=== PATIENT | female | born 1975 | race Caucasian/White ===

== ENCOUNTER 2021-05-14 14:54 | Emergency (ER) | payer BC, SELFPAY ==
[2021-05-14 14:58] VITALS: BP 104/86; PULSE 90; RESP 16; TEMP 35.9; O2SAT 97; BMI 32.9
[2021-05-14 15:55] LABS: Absolute Lymphocyte Count 2.19 X10^3/uL (0.83-4.51); Absolute Neutrophil Count 5.1 X10^3/uL (2.0-7.7); Basophil# 0.05 X10^3/uL; Basophil% 0.6 % (0-1); Eosinophil# 0.18 X10^3/uL; Eosinophils% 2.2 % (0-5); Hematocrit 39.3 % (37-47); Hemoglobin 12.7 g/dL (12.0-15.0); Lymphocyte # 2.19 X10^3/ul (0.83-4.51); Lymphocyte % 27.2 % (19-41); Mean Corp Hgb Conc 32.3 g/dL (32-36); Mean Corpuscular Hgb 30.6 pg (27.0-32.0); Mean Corpuscular Volume 94.7 fL (81-99); Mean Platelet Vol. 9.7 fl (6.2-12.0); Monocyte% 6.2 % (0-10); NRBC Flagged by Analyzer 0 % (0-5); Neutrophil # 5.11 X10^3/uL (2.7-7.7); Neutrophil % 63.4 % (47-70); Platelet Count 366 K/mm3 (150-450); RBC Distribution Width CV 13.1 % (11.6-14.6); RBC Distribution Width SD 45.1 fl (35.1-43.9); Red Blood Count 4.15 M/mm3 (4.2-5.4); White Blood Count 8.1 K/mm3 (4.4-11.0)
[2021-05-14 16:03] LABS: Internal QC Validated? YES +Cl - CLEAR BKGD; Pregnancy, Serum, hCG Quali. NEGATIVE Negative
[2021-05-14 16:51] LABS: Anion Gap 6 (5-15); BUN 7 mg/dL (7-18); BUN/Creat Ratio 9.8 RATIO (10-20); Calcium,Total 8.9 mg/dL (8.5-10.1); Chloride 105 mmol/L (98-107); Creatinine, Serum 0.71 mg/dL (0.55-1.02); EST Glomerular Filtration Rate 95 mL/min (>60); Est Glom Filt Rate - Afr Amer 115 mL/min (>60); Estimated Creatinine Clearance 91.93 ml/min; Glucose 77 mg/dL (74-106); Sodium Level 138 mmol/L (136-145)
--- NOTE | 2021-05-14 16:53 | CT_ITS ---
STUDY: CT ABDOMEN AND PELVIS WITH CONTRAST REASON FOR EXAM: Female, 45 years old. LLQ pain RADIATION DOSAGE (If Supplied By Facility): CTDIvol = ( 16.88 ) mGy, DLP = ( 1070.63 ) mGycm TECHNIQUE: Transaxial images were obtained from the dome of the diaphragm to the symphysis pubis without oral contrast. IV 100mL Isovue-370 was administered. Sagittal and coronal images were reconstructed. Individualized dose optimization techniques were used for this CT. COMPARISON: None. FINDINGS: The visualized lung bases are unremarkable. The visualized portions of the heart are within normal limits. There are bilateral breast implants. Normal liver. Normal gallbladder and extrahepatic biliary system. Normal spleen. Normal pancreas. Normal bilateral adrenal glands. Normal right kidney. Normal left kidney. Normal visualized stomach. Normal small intestine. Normal colon. The appendix is visualized and appears normal. Normal abdominal aorta. Normal inferior vena cava. Normal retroperitoneum. Normal urinary bladder. There is absence of the uterus consistent with a prior hysterectomy. There is no free fluid in the abdomen or pelvis. Normal abdominal wall. There is right hip replacement. CT/Abdomen/Pelvis W IV Cont ONLY IMPRESSION: No mass or obstruction. No stones or hydronephrosis. Electronically Signed: Adam Jordan MD at 17:27 EDT , Service support ,
--- NOTE | 2021-05-14 16:54 | ED.VIS.GI ---
HPI HPI - GI History of Present Illness Chief Complaint: GI Bleed Informant: patient Abdominal Pain/Flank Pain Onset: Today Context: Gradual Onset Timing: Continuous Quality: Aching Location: LLQ (With radiation into both sides of low back and right lower quadrant) Current Severity: Moderate Maximum Severity: Moderate Worsened by: Car ride Relieved by: Nothing Nausea/Vomiting/Emesis GI Symptom: Negative for Nausea and Vomiting Diarrhea/Melena/Hematochezia GI Symptom: Positive for Hematochezia; Negative for Diarrhea and Melena Onset: Today Episodes: 2 Associated Symptoms Associated Symptoms: Negative for Dysuria, Frequency, Hematuria and Urgency Narrative Narrative: Patient with development of rectal bleeding and abdominal pain today, mostly in the left lower quadrant. States she had this once before and she was seen at an urgent care in [facility], they told her it was diverticulitis and to change her diet but she was prescribed no antibiotics and had no CT scan or colonoscopy. That was the only time she ever dealt with this, she states that she had 2 different episodes of bleeding that was worse than that other episode a year ago. Prior abdominal histories include tubal ligation, partial hysterectomy, and one of her fallopian tubes removed due to a tubal . [facility] Medical History (Updated 05/14/21 @ 19:[address] Adam Norris MD) Diverticulitis Medical History no medical history no medical history Home Medications dicyclomine 20 mg PO Q8H PRN #20 capsule 05/14/21 [Rx Last Taken Unknown] Allergy/AdvReac Type Severity Reaction Status Date / Time acetaminophen [From Percocet] Allergy Itching Verified 05/14/21 14:57 oxycodone [From Percocet] Allergy Itching Verified 05/14/21 14:57 nalbuphine [From Nubain] AdvReac Other Verified 05/14/21 14:57 Surgical History (Updated 05/14/21 @ 16:[address] Adam Norris MD) H/O laparoscopy History of bilateral tubal ligation History of partial hysterectomy History of salpingectomy Social History Smoking Status: Unknown if ever smoked ROS ROS ED Constitutional Constitutional ED: Denies chills or fever(s) Eyes Eyes: Denies change in vision or diplopia ENT ENT ED: Denies rhinorrhea or sore throat Cardiovascular Cardiovascular: Denies chest pain or palpitations Respiratory/Chest Respiratory/Chest: Denies cough or dyspnea Gastrointestinal Gastrointestinal: Reports abdominal pain and hematochezia; Denies diarrhea, nausea or vomiting Genitourinary Genitourinary ED: Denies dysuria or hematuria Musculoskeletal Musculoskeletal: Reports back pain; Denies neck pain Integumentary Denies abscess or rash Neurologic Neurologic: Denies headache(s), paresthesias or weakness Psychiatric Psychiatric: Denies anxiety or suicidal thoughts EXAM Physical Exam Const Vital Signs: 05/14/21 14:58 Temperature 96.7 F L Temperature Source Temporal Pulse Rate 90 Respiratory Rate 16 Blood Pressure 104/86 H Blood Pressure Mean 92 Pulse Ox 97 Oxygen Delivery Method Room Air Positive well nourished and well developed General Appearance ED: well developed and NAD HEENT Reports moist mucous membranes normocephalic and atraumatic Eyes PERRL and EOMs intact bilaterally Neck full ROM and supple Resp normal respiratory effort and clear to auscultation bilaterally Cardio regular rate, regular rhythm and no murmurs Rate: Negative for tachycardic GI non-distended GI Narrative: Patient very tender in the left lower quadrant-mildly tender in the suprapubic area and left upper quadrant otherwise benign exam. No guarding or rebound tenderness. Bowel sounds present. Auscultation: normoactive bowel sounds Palpation: soft Back/Spine no CVA tenderness General Back: other FROM Extremity normal to inspection General Extremety ED: Negative for edema, pulses abnormal or tenderness General Extremity: Negative for edema or pulses abnormal Neuro oriented x3, CN's II-XII intact bilaterally and no sensory deficits noted Sensorium / Orientation: awake and alert Motor Exam: strength 5/5 throughout Skin no rashes or lesions noted and no wounds MDM MDM MDM Narrative Medical decision making narrative: Testing and CT all within normal limits. Her vital signs are normal. She was having some clots come out with a couple episodes of rectal bleeding she had. She showed me pictures. It was not large in amount. I reassured her, this is indicative of bleeding that is not fast and life-threatening in quantity and speed. Her blood counts are stable as are her vital signs and clinically she is as well. There is no evidence of acute diverticulitis on the CT. However, she was advised that she will likely require further exploration, likely a colonoscopy to explain the bleeding further. We discussed the differential here, which is not exclusive of possibilities but includes mass, diverticulosis, inflammatory bowel disease, internal hemorrhoids. She was reassured regarding the pain and the bleeding at this time and we discussed reasons to return to the ER, she will be given Bentyl to use as needed and advised to follow-up closely with GI to whom she is referred. She is comfortable with that plan. Lab Data Attestation: I reviewed the patient's lab results. Labs: Laboratory Results - last 24 hr 05/14/21 05/14/21 05/14/21 15:45 15:45 15:45 WBC 8.1 RBC 4.15 L Hgb 12.7 Hct 39.3 MCV 94.7 MCH 30.6 MCHC 32.3 RDW Std Deviation 45.1 H RDW Coeff of Mo 13.1 Plt Count 366 MPV 9.7 Immature Gran % (Auto) 0.400 Neut % (Auto) 63.4 Lymph % (Auto) 27.2 [place] % (Auto) 6.2 Eos % (Auto) 2.2 Baso % (Auto) 0.6 Absolute Neuts (auto) 5.1 Absolute Lymphs (auto) 2.19 Nucleated RBC % 0 Sodium 138 Potassium 5.0 Chloride 105 Carbon Dioxide 27.0 Anion Gap 6 BUN 7 Creatinine 0.71 Estim Creat Clear Calc 91.93 Est GFR (MDRD) Af Amer 115 Est GFR (MDRD) Non-Af 95 BUN/Creatinine Ratio 9.8 L Glucose 77 Calcium 8.9 Serum , Qual NEGATIVE Urine Color Urine Clarity Urine pH Ur Specific [place] Urine Protein Urine Glucose (UA) Urine Ketones Urine Occult Blood Urine Nitrite Urine Bilirubin Urine Urobilinogen Ur Leukocyte Esterase Urine RBC Urine WBC Ur Squamous Epith Cells Urine Bacteria Urine Mucus 05/14/21 17:30 WBC RBC Hgb Hct MCV MCH MCHC RDW Std Deviation RDW Coeff of Mo Plt Count MPV Immature Gran % (Auto) Neut % (Auto) Lymph % (Auto) [place] % (Auto) Eos % (Auto) Baso % (Auto) Absolute Neuts (auto) Absolute Lymphs (auto) Nucleated RBC % Sodium Potassium Chloride Carbon Dioxide Anion Gap BUN Creatinine Estim Creat Clear Calc Est GFR (MDRD) Af Amer Est GFR (MDRD) Non-Af BUN/Creatinine Ratio Glucose Calcium Serum , Qual Urine Color Yellow Urine Clarity Clear Urine pH 6.0 Ur Specific [place] 1.015 Urine Protein Negative Urine Glucose (UA) Normal Urine Ketones Negative Urine Occult Blood Negative Urine Nitrite Negative Urine Bilirubin Negative Urine Urobilinogen Normal Ur Leukocyte Esterase Negative Urine RBC 0 SEEN Urine WBC 0 SEEN Ur Squamous Epith Cells 0 SEEN Urine Bacteria 1+ Urine Mucus 0 SEEN Radiography Diagnostic Testing: Radiology Impression Abdomen/Pelvis CT 05/14/21 16:53 IMPRESSION: No mass or obstruction. No stones or hydronephrosis. Electronically Signed: Adam Jordan MD at 17:27 EDT , Service support , Discharge Plan Triage Chief Complaint: GI Bleed ED Provider: Adam Norris Dx/Rx/DC Orders Clinical Impression: Acute lower GI bleeding, Acute left lower quadrant pain Instructions: ED Lower GI Bleeding (Stable) Prescriptions: New dicyclomine 10 MG capsule 20 mg PO Q8H PRN (Reason: Abdominal Discomfort) Qty: 20 RF: 0 Referrals: Yessi Alcocer [Other] Friend,DO Gaurang [STAFF PHYSICIAN] - As soon as possible (call for appt) Disposition Disposition: Home, Self Care
[2021-05-14] MEDS: Ketorolac 15 MG/ML Vial IV (16:59)
[2021-05-14] MEDS: 0.9% Normal Saline 1,000 ML 1000 ML IV (17:00)
[2021-05-14 17:38] LABS: Mucous, Urine 0 SEEN /hpf (<or=2+); Red Blood Cells-Urine 0 SEEN /hpf (0-5); Squamous Epithelial Cells - UA 0 SEEN /hpf (5-10); White Blood Cells 0 SEEN /hpf (0-5)
[2021-05-14 17:45] LABS: Color, Urine Yellow (Yellow); Glucose, Dipstick Normal (Normal); Ketone-Dipstick Negative (Negative); Leukocyte Esterase-Dipstick Negative /ul (Negative); Nitrite-Dipstick Negative (Negative); Occult Blood-Urine Negative /ul (Negative); Protein-Dipstick Negative (Negative); Specific Gravity, Urine 1.015 (1.002-1.030); Urine Bilirubin Dipstick Negative (Negative); Urine Clarity Clear (Clear); Urine Urobilinogen Normal (Normal)
[2021-05-14 17:52] LABS: Bacteria 1+ /hpf (None Seen)
== END 2021-05-14 19:20 | disposition home or self-care (01) ==
PROVIDERS: Emergency Provider Emergency Medicine
DX: K92.2 Gastrointestinal hemorrhage, unspecified (principal); R10.32 Left lower quadrant pain
CPT/HCPCS: 74177; 80048; 81001; 84703; 85025; 96374; 99283; J7030; Q9967; A4216